=== PATIENT | male | born 1990 | race Caucasian/White ===

== ENCOUNTER → 2016-08-20 | Outpatient (CLI) | payer OTHER | LOC: RAD 12:03 | PROVIDERS: ATTEND Clinical Nurse Specialist Adult Health | DX: M54.2 Cervicalgia (principal) | CPT/HCPCS: 72141 ==

== ENCOUNTER 2016-09-16 14:42 | Emergency (ER) | payer OTHER ==
[2016-09-16 14:51] VITALS: BP 122/80
--- NOTE | 2016-09-16 14:58 | ER Document Report ---
ED Medical Screen (RME) - General Stated Complaint: LEG PAIN Time seen by provider: 14:55 Notes: Patient has abscessed area to inside left knee for 3 days. Patient was referred to the emergency room by the [facility] for possible incision and drainage. No known injury, no known insect bite. Patient states site is itchy. Has tried not to scratch it. Antibiotic prescription given to patient today at [facility], and was asked to be reviewed by emergency room physician to see if appropriate antibiotic. Patient denies fevers. Patient denies history of MRSA I have greeted and performed a rapid initial assessment of this patient. A comprehensive ED assessment and evaluation of the patient, analysis of test results and completion of the medical decision making process will be conducted by additional ED providers. TRAVEL OUTSIDE OF THE [place] IN LAST 30 DAYS: No - Related Data Allergies/Adverse Reactions: sulfamethoxazole [From [facility]] Allergy (Severe, Verified 09/16/16 14:55) swelling trimethoprim [From [facility]] Allergy (Severe, Verified 09/16/16 14:55) swelling Past Medical History - Immunizations Hx Diphtheria, Pertussis, Tetanus Vaccination: Yes Physical Exam - Vital signs Vitals: Temp Pulse Resp BP Pulse Ox 97.8 F 97 18 122/80 100 09/16/16 14:49 09/16/16 14:49 09/16/16 14:49 09/16/16 14:49 09/16/16 14:49 - Skin Skin Temperature: Warm Skin Moisture: Dry Skin Color: Erythema Notes: 1 inch red, swollen area just below the medial left knee. Course - Vital Signs Vital signs: Temp Pulse Resp BP Pulse Ox 97.8 F 97 18 122/80 100 09/16/16 14:49 09/16/16 14:49 09/16/16 14:49 09/16/16 14:49 09/16/16 14:49
[2016-09-16] MEDS ORDERED: HYDROCODONE/ACETAMINOPHEN 5-325 MG TABLET PO ONE (15:14)
[2016-09-16] MEDS ORDERED: LIDOCAINE 1%/EPINEPHRINE INJ 20 ML VIAL INJ ONE (15:14)
--- NOTE | 2016-09-16 15:17 | ER Document Report ---
ED Wound - General Chief Complaint: Leg Pain Stated Complaint: LEG PAIN Notes: The patient is a 26-year-old male who presents with redness and abscess over the left lower leg. He was seen at the [facility] today, given a prescription for clindamycin for 1 week and sent to the emergency room for an I&D. He denies injury, Hx of IVDA, discharge out of the wound, numbness, tingling, fevers or difficulty walking. TRAVEL OUTSIDE OF THE [place] IN LAST 30 DAYS: No - Related Data Allergies/Adverse Reactions: sulfamethoxazole [From [facility]] Allergy (Severe, Verified 09/16/16 14:55) swelling trimethoprim [From [facility]] Allergy (Severe, Verified 09/16/16 14:55) swelling Past Medical History - General Information source: Patient - Social History Smoking Status: Unknown if Ever Smoked Chew tobacco use (# tins/day): No Frequency of alcohol use: None Drug Abuse: None Family History: Reviewed & Not Pertinent Patient has suicidal ideation: No Patient has homicidal ideation: No Renal/ Medical History: Denies: Hx Peritoneal Dialysis - Immunizations Hx Diphtheria, Pertussis, Tetanus Vaccination: Yes Review of Systems - Review of Systems Notes: REVIEW OF SYSTEMS: CONSTITUTIONAL: -fevers, -chills EENT: -eye pain, -difficulty swallowing, -nasal congestion CARDIOVASCULAR:-chest pain, -syncope. RESPIRATORY: -cough, -SOB GASTROINTESTINAL: -abdominal pain, - nausea, -vomiting, -diarrhea GENITOURINARY: -dysuria, -hematuria MUSCULOSKELETAL: -back pain, -neck pain SKIN: +rash and abscess HEMATOLOGIC: -easy bruising or bleeding. LYMPHATIC: -swollen, enlarged glands. NEUROLOGICAL: -altered mental status or loss of consciousness, -headache, - neurologic symptoms PSYCHIATRIC: -anxiety, -depression. ALL OTHER SYSTEMS REVIEWED AND NEGATIVE. Physical Exam - Vital signs Vitals: Temp Pulse Resp BP Pulse Ox 97.8 F 97 18 122/80 100 09/16/16 14:49 09/16/16 14:49 09/16/16 14:49 09/16/16 14:49 09/16/16 14:49 - Notes Notes: PHYSICAL EXAMINATION: GENERAL: Well-appearing, well-nourished and in no acute distress. HEAD: Atraumatic, normocephalic. EYES: Pupils equal round and reactive to light, extraocular movements intact, sclera anicteric, conjunctiva are normal. ENT: nares patent, oropharynx clear without exudates. Moist mucous membranes. NECK: Normal range of motion, supple without lymphadenopathy LUNGS: Breath sounds clear to auscultation bilaterally and equal. No wheezes rales or rhonchi. HEART: Regular rate and rhythm without murmurs ABDOMEN: Soft, nontender, normoactive bowel sounds. No guarding, no rebound. No masses appreciated. EXTREMITIES: Normal range of motion, no pitting or edema. No cyanosis. NEUROLOGICAL: Cranial nerves grossly intact. Normal speech, normal gait. Normal sensory, motor, and reflex exams. PSYCH: Normal mood, normal affect. SKIN: 1 cm abscess over left medial upper thigh, surrounding erythema around abscess, Warm, Dry, normal turgor Course - Re-evaluation Re-evalutation: Patient with mild cellulitis and small abscess on ultrasound. Abscess drained with a small amount of purulent drainage. Patient already has prescription for clindamycin from the [place] [facility]. Instructed him to continue this and return if symptoms worsen. Cellulitis outlined with skin marker. No evidence of septic knee joint at this time. - Vital Signs Vital signs: Temp Pulse Resp BP Pulse Ox 97.8 F 97 18 122/80 100 09/16/16 14:49 09/16/16 14:49 09/16/16 14:49 09/16/16 14:49 09/16/16 14:49 Procedures - Incision and Drainage Left Lower Leg Type: Simple Anesthetic type: 1% Lidocaine mL's of anesthetic: 3 Blade size: 11 I&D procedure: Betadine prep applied, Sterile dressing applied Incision Method: Incision made by scalpel Amount/type of drainage: Purulent 2 mL Discharge - Discharge Clinical Impression: Cellulitis and abscess of leg Condition: Good Disposition: HOME, SELF-CARE Additional Instructions: Take the clindamycin as prescribed by your primary care physician. Return to the ER if you notice any spreading of the rash, you develop fevers or you have any other concerns. ABSCESS: You have an abscess (boil). This a pus-forming infection, usually due to staph. Some boils may be left to drain on their own, but most require lancing. From the time the tender lump first appears, it may be three or four days before the abscess is ready to maricarmen. Local heat and rest help at this stage of treatment. An antibiotic may prevent spread of the infection. Once the abscess is opened, packing may be placed into it. This is done so pus is not sealed inside by premature closure of the cavity. The packing will be removed at your follow-up visit or you may be advised to remove it yourself at home. Sometimes this packing must be replaced a few times during healing. The wound will heal with surprisingly little scar. Depending on the size and location of an abscess, healing can take one to four weeks. You may shower and wash the area around the incision site two or three times a day. Antibiotics may be prescribed, but are usually not necessary after an abscess has been drained. If you develop fever, chills, worsening pain, or increasing swelling in the area, call the doctor or return immediately. POST INCISION AND DRAINAGE: You have had an incision made to allow drainage of an abscess. The incision must remain open so that pus and debris can drain from the wound. If the abscess cavity is large, packing is placed. This keeps the tissues from collapsing and trapping pus inside, while the body shrinks the cavity. The packing may need to be replaced every day or two. The physician will instruct you on the packing. Keep a bulky dressing over the area. Replace it if it becomes saturated with blood or pus. Do not disturb the packing (if present). You may shower and cleanse the area with gentle soap and warm water two or three times a day. Local warmth may be soothing, and may promote faster healing. Return if you develop high fever or chills, or if you note spreading redness, increasing swelling, or increasing tenderness. MRSA CELLULITIS: You have an infection of your skin and underlying soft tissues called cellulitis. This is due to bacteria, which can enter through any break in the skin, or even through an irritated hair follicle. Untreated, cellulitis will usually worsen and may form an abscess which requires draining. Although many bacterial organisms can cause cellulitis and abscess formations, the most likely bacteria is Methicillin-Resistant Staph Aureus, or MRSA for short. Antibiotics are required. Usually, warm packs or warm soaks, and elevation of the infected area are recommended. You should start getting better within 24 to 36 hours. Most infections respond quickly to the right medication. Follow-up care is important, however, to check for abscess (boil) formation, unsuspected foreign body, or resistant infection. If you develop fever, chills, or if the area of infection is becoming rapidly more swollen or painful, call the doctor at once. FOLLOW-UP CARE: Most simple abscesses will not require a follow up visit. If you had packing placed in the abscess, remove it as instructed by the physician. If you have been referred to a physician for follow-up care, call the physicians office for an appointment as you were instructed or within the next two days. If you experience worsening or a significant change in your symptoms, return to the Emergency Department at any time for re-evaluation. Forms: Return to Work
== END 2016-09-16 16:05 | disposition home or self-care (01) ==
LOC: ER 14:42
PROC: 0H9LXZZ Drainage of Left Lower Leg Skin, External Approach (ICD-10-PCS; principal; 2016-09-16)
DX: L02.416 Cutaneous abscess of left lower limb (principal); M79.605 Pain in left leg; Z88.3 Allergy status to other anti-infective agents
CPT/HCPCS: 99283